=== PATIENT | female | born 1995 | race Two or more races ===

== ENCOUNTER 2023-02-20 17:54 | Emergency (ER) | payer OTHER ==
[~2023-02-20] VITALS: Ht 157.5 cm; Wt 68.9 kg
[2023-02-20] MEDS ORDERED: SYNTHROID175 MCG (18:20)
[2023-02-20] MEDS ORDERED: VENTOLIN HFA18 GM (18:20)
[2023-02-20] MEDS ORDERED: PROTONIX40 MG (18:20)
[2023-02-20 20:10] LABS: HEMATOCRIT 41.2 % (36.0-45.00); HEMOGLOBIN 13.7 g/dL (12.0-15.00); MEAN CELL VOLUME 83.4 fL (80.00-100.00); MEAN CORPUSCULAR HEMOGLOBIN 27.8 pg (27.00-32.0); MEAN CORPUSCULAR HGB CONC 33.3 g/dl (32.0-36.0); PLATELET COUNT 273 K/uL (150-450); RED BLOOD COUNT 4.94 M/uL (4.00-6.00); RED CELL DISTRIBUTION WIDTH 15.1 % (11.5-14.5)
[2023-02-20 20:31] LABS: CALCIUM 8.6 mg/dL (8.5-10.1); CREATININE SERUM 0.74 mg/dL (0.55-1.02); GFR 94.86; POTASSIUM 3.57 mEq/L (3.5-5.1)
[2023-02-20 20:37] LABS: PH,URINE 7.5 (5.0-8.0); URINE APPEARANCE Clear; URINE BILIRRUBIN Negative (NEGATIVE); URINE BLOOD Negative; URINE COLOR Yellow; URINE GLUCOSE Negative (NEGATIVE); URINE LEUKOCYTE Negative; URINE NITRATE Negative; URINE PROTEIN Negative (NEGATIVE); URINE UROBILINOGEN 0.2 E.U./dl
[2023-02-20 20:41] LABS: URINE BACTERIA 80.5 uL (0.0-1933); URINE EPITHELIAL CELLS 7.5 uL (0.0-38.8); URINE WBC 4.6 uL (0.0-23.2)
[2023-02-21] MEDS ORDERED: DOLOGESIC 500-1 EACH PO (03:44)
== END 2023-02-21 03:51 ==
LOC: ER 17:55
PROVIDERS: Emergency Medicine
DX: N83.292 Other ovarian cyst, left side (principal)